=== PATIENT | female | born 1990 | race Hispanic/Latino ===

== ENCOUNTER 2017-09-24 14:37 | Emergency (ER) | payer MEDICAID, OTHER | END 2017-09-24 15:35 | disposition home or self-care (01) | LOC: EDH 14:37 | DX: L02.01 Cutaneous abscess of face (principal); Z88.6 Allergy status to analgesic agent; Z98.890 Other specified postprocedural states ==

== ENCOUNTER 2017-10-20 12:47 | Observation (INO) | payer MEDICAID ==
[~2017-10-20] VITALS: Ht 157.5 cm; Wt 84.8 kg
[2017-10-20 14:10] LABS: APPEARANCE,URINE Clear (CLEAR); BILIRUBIN,URINE Negative (NEGATIVE); COLOR,URINE Yellow (YELLOW); GLUCOSE, URINE (UA) Negative (NEGATIVE); KETONES,URINE Trace mg/dL (NEGATIVE); LEUKOCYTE ESTERASE ,URINE Trace (NEGATIVE); NITRATE,URINE Negative (NEGATIVE); OCCULT BLOOD,URINE Negative (NEGATIVE); PROTEIN,URINE Negative (NEGATIVE)
[2017-10-20 14:37] LABS: BACTERIA,URINE Few /HPF (None Seen); RBC,URINE 0-1 /HPF (0-1); SQUAMOUS EPITHELIAL CELL,UR Few /HPF (0-2)
[2017-10-20 14:38] LABS: MUCUS,URINE Few LPF (None Seen)
[2017-10-20] MEDS ORDERED: LACTATED RINGERS 1000ML 1,000 ML IV PRN (14:59)
[2017-10-20] MEDS ORDERED: ONDANSETRON HCL MDV 20ML 2 MG/ML VIAL IVP SCH (15:00)
[2017-10-20] MEDS ORDERED: ONDANSETRON HCL MDV 20ML 2 MG/ML VIAL ONE (15:28)
== END 2017-10-20 15:30 | disposition home or self-care (01) ==
LOC: LDH 12:47
DX: O36.8120 Decreased fetal movements, second trimester, not applicable or unspecified (principal); R10.9 Unspecified abdominal pain; Z3A.21 21 weeks gestation of pregnancy
CPT/HCPCS: 81001; G0378 ×4; 96360; 96361

== ENCOUNTER 2017-12-27 15:00 | Observation (INO) | payer MEDICAID ==
[2017-12-27 15:54] LABS: APPEARANCE,URINE Clear (CLEAR); BILIRUBIN,URINE Negative (NEGATIVE); COLOR,URINE Yellow (YELLOW); GLUCOSE, URINE (UA) Negative (NEGATIVE); KETONES,URINE Negative (NEGATIVE); LEUKOCYTE ESTERASE ,URINE Trace (NEGATIVE); NITRATE,URINE Negative (NEGATIVE); OCCULT BLOOD,URINE Negative (NEGATIVE); PROTEIN,URINE Negative (NEGATIVE)
[2017-12-27 16:19] LABS: BACTERIA,URINE Few /HPF (None Seen); RBC,URINE None Seen /HPF (0-1); WBC,URINE 0-1 /HPF (0-1)
== END 2017-12-27 16:48 | disposition home or self-care (01) ==
LOC: LDH 15:00
DX: O62.9 Abnormality of forces of labor, unspecified (principal); Z3A.31 31 weeks gestation of pregnancy
CPT/HCPCS: 81001; G0378 ×3; J7120; 96360

== ENCOUNTER 2018-01-07 02:27 | Observation (INO) | payer OTHER, MEDICAID ==
[~2018-01-07] VITALS: Ht 157.5 cm; Wt 88.5 kg
[2018-01-07 03:09] LABS: APPEARANCE,URINE Clear (CLEAR); BILIRUBIN,URINE Negative (NEGATIVE); COLOR,URINE Yellow (YELLOW); GLUCOSE, URINE (UA) TRACE mg/dL (NEGATIVE); KETONES,URINE Negative (NEGATIVE); LEUKOCYTE ESTERASE ,URINE Negative (NEGATIVE); NITRATE,URINE Negative (NEGATIVE); OCCULT BLOOD,URINE Trace (NEGATIVE); PROTEIN,URINE Negative (NEGATIVE)
[2018-01-07] MEDS: LACTATED RINGERS 1000ML 1,000 ML IV SCH ×2 (03:12→03:34)
[2018-01-07 03:22] LABS: BACTERIA,URINE None Seen /HPF (None Seen); MUCUS,URINE Rare LPF (None Seen); RBC,URINE 0-1 /HPF (0-1); SQUAMOUS EPITHELIAL CELL,UR Few /HPF (0-2); WBC,URINE None Seen /HPF (0-1)
[2018-01-07] MEDS ORDERED: LACTATED RINGERS 1000ML 1,000 ML IV PRN (03:26)
[2018-01-07] MEDS ORDERED: LACTATED RINGERS 1000ML 1,000 ML IV SCH (03:30)
[2018-01-07] MEDS ORDERED: TERBUTALINE SULFATE VIAL 1MG/ML SQ SCH ×2 (03:30)
== END 2018-01-07 10:26 | disposition home or self-care (01) ==
LOC: EDH 02:27 → LDH 02:28
PROVIDERS: ADMIT Specialist; ATTEND Specialist
DX: O26.893 Other specified pregnancy related conditions, third trimester (principal); O46.93 Antepartum hemorrhage, unspecified, third trimester; R10.2 Pelvic and perineal pain; Z3A.32 32 weeks gestation of pregnancy; Z79.899 Other long term (current) drug therapy; R21 Rash and other nonspecific skin eruption
CPT/HCPCS: 81001; 96360; 96361 ×2; 96372; G0378 ×8; J3105; J7120 ×2